=== PATIENT | male | born 1995 | race Caucasian/White ===

== ENCOUNTER 2017-07-30 18:23 | Emergency (ER) | payer OTHER ==
[2017-07-30 18:29] VITALS: BP 117/73
[2017-07-30] MEDS ORDERED: BACITRACIN OINT TOP STA (18:35)
--- NOTE | 2017-07-30 18:37 | ED Physician Documentation ---
PD HPI WOUND RECHECK - Stated complaint Stated Complaint: RT PINKY LAC - Chief complaint Chief Complaint: Wound - Histroy obtained from History obtained from: Patient, Family - History of Present Illness Location: Right Upper Extremity (R 5th finger) Timing - onset: How many weeks ago (1) Pain level max: 0 Pain level now: 0 Associated symptoms: Redness, Swelling, Drainage (yellow, clear today). No: Fever Recently seen: Emergency Dept (last week at [facility] after laceration.) - Additional information Additional information: 22-year-old right-handed male who lacerated his right fifth digit last week while working on his 's car. Today he noticed slight yellow drainage, clear. Concerned about potential infection. Review of Systems Constitutional: denies: Fever GI: denies: Vomiting PD PAST MEDICAL HISTORY - Past Medical History Past Medical History: No - Present Medications Home Medications: Ambulatory Orders Medication Instructions Recorded Confirmed Bacitracin Zinc Oint 1 applic TOP BID #1 tube 07/30/17 - Allergies Allergies/Adverse Reactions: Allergies Allergy/AdvReac Type Severity Reaction Status Date / Time No Known Drug Allergies Allergy Verified 07/30/17 18:29 - Living Situation Living Situation: reports: With family Living Arrangement: reports: At home - Social History Does the pt smoke?: No Does the pt have substance abuse?: No - Immunizations Immunizations are current?: Yes Immunizations: TDAP current <10years PD ED PE NORMAL - Vitals Vital signs reviewed: Yes - General General: Alert and oriented X 3, No acute distress - Derm Derm: Warm and dry - Extremities Extremities: Other (R 5th digit - laceration half way through the nail. no bleeding. No redness, no swelling. no drainge. No lymphangitis.) - Neuro Neuro: Alert and oriented X 3 Results - Vitals Vitals: Vital Signs - 24 hr 07/30/17 18:28 Temperature 36.8 C Heart Rate 69 Respiratory 16 Rate Blood Pressure 117/73 O2 Saturation 99 Oxygen O2 Source Room air PD MEDICAL DECISION MAKING - ED course Complexity details: considered differential, d/w patient, d/w family ED course: Patient here for a wound check to 1 week old wound on the right fifth digit. This was cleansed and bandaged. Bacitracin applied. We will have him follow- up with his doctor for further care. No evidence of infection at this time. Patient counseled regarding signs and symptoms for which I believe and urgent re -evaluation would be necessary. Patient with good understanding of and agreement to plan and is comfortable going home at this time This document was made in part using voice recognition software. While efforts are made to proofread this document, sound alike and grammatical errors may occur. Departure - Departure Disposition: 01 Home, Self Care Clinical Impression: Visit for wound check Condition: Good Instructions: ED Wound Care Follow-Up: your,doctor in 1 week for wound check [Other] Prescriptions: Bacitracin Zinc Oint 1 applic TOP BID #1 tube Comments: Use the bacitracin twice a day for the wound. Return for redness, swelling, or drainage from the wound. Discharge Date/Time: 07/30/17 18:44
== END 2017-07-30 18:44 | disposition home or self-care (01) ==
LOC: ED 18:23
DX: S61.216D Laceration without foreign body of right little finger without damage to nail, subsequent encounter (principal); X58.XXXD Exposure to other specified factors, subsequent encounter
CPT/HCPCS: 99282; 99283; A9270